=== PATIENT | female | born 1930 | race Caucasian/White ===

== ENCOUNTER 2017-10-28 17:28 | Inpatient (IN) | payer OTHER, MEDICARE ==
--- NOTE | 2017-10-28 18:05 | PDOC ---
History of Present Illness - General Chief Complaint: Chest Pain Stated Complaint: PAIN Time Seen by Provider: 10/28/17 17:53 - History of Present Illness Initial Comments: 10/28/17 18:04 86 yo F with h/o F with h/o of HTN, HLD, hypothyroidism, dementia, and recent R 6th-9th rib fracture ( 10/26/17) who p/w chest pain. Family at bedside to assist in report. Patient reports worsening R sided sharp, pleuritic chest pain , and non productive cough x 2 days. Fevers x 1 day. Recent fall and R sided 6th-9th rib fracture (10/26) requiring hospitalization. Following d/c from hospital patient has been bed bound, and ambulation with walker to bathroom. Patient lives with sister in basement. Reports non compliance with incentive spirometry, and absent physical therapy. Pain controlled with tylenol, and lidocaine patch. Patient sister also reports increased urinary dribbling from baseline. Patient denies PND, palpitations, orthopnea, leg swelling/pain, SOB, abdominal pain, diarrhea, constipation, lightheadedness, weakness, sensory changes. PMHx: as noted above ROS: as noted SHx: Denies Etoh, IVDA, tobacco use Allergies: NKDA Past History - Past Medical History Allergies/Adverse Reactions: Allergies Allergy/AdvReac Type Severity Reaction Status Date / Time ANTELMO Inhibitors AdvReac Mild Cough Verified 10/28/17 17:55 Home Medications: Ambulatory Orders Aspirin 81 mg PO ASDIR 10/25/17 Citalopram Hydrobromide [Citalopram HBr] 10 mg PO ASDIR 10/25/17 Diclofenac Sodium 50 mg PO ASDIR 10/25/17 Ezetimibe/Simvastatin [Vytorin 10-40 mg Tablet] 1 each PO ASDIR 10/25/17 Hydrochlorothiazide 12.5 mg PO ASDIR 10/25/17 Levothyroxine [Synthroid -] 112 mcg PO DAILY 10/25/17 Metoprolol Tartrate 25 mg PO ASDIR 10/25/17 Olmesartan Medoxomil [Benicar -] 20 mg PO DAILY 10/25/17 Acetaminophen [Tylenol .Regular Strength -] 650 mg PO Q6H PRN tablet 10/26/17 COPD: No Dementia: Yes HTN: Yes Hypercholesterolemia: Yes Psychiatric Problems: Yes (Anxiety) Thyroid Disease: Yes (hypothyroid) - Suicide/Smoking/Psychosocial Hx Smoking History: Never smoked Have you smoked in the past 12 months: No Hx Alcohol Use: No Drug/Substance Use Hx: No Substance Use Type: None Review of Systems - Review of Systems Comments:: 10/28/17 18:04 GENERAL/CONSTITUTIONAL: No fever or chills. No weakness. HEAD, EYES, EARS, NOSE AND THROAT: No change in vision. No ear pain or discharge. No sore throat. CARDIOVASCULAR: + chest pain. No shortness of breath RESPIRATORY: + chest pain and cough. No wheezing, or hemoptysis. GASTROINTESTINAL: No nausea, vomiting, diarrhea or constipation. GENITOURINARY: + change in urination. No dysuria, frequency. MUSCULOSKELETAL: No joint or muscle swelling or pain. No neck or back pain. SKIN: No rash NEUROLOGIC: No headache, vertigo, loss of consciousness, or change in strength/ sensation. ENDOCRINE: No increased thirst. No abnormal weight change HEMATOLOGIC/LYMPHATIC: No anemia, easy bleeding, or history of blood clots. ALLERGIC/IMMUNOLOGIC: No hives or skin allergy. *Physical Exam - Vital Signs Last Vital Signs Temp Pulse Resp BP Pulse Ox 102.0 F H 68 16 140/70 98 10/28/17 17:56 10/28/17 17:56 10/28/17 17:56 10/28/17 17:56 10/28/17 17:56 - Physical Exam Comments: 10/28/17 18:04 GENERAL: Awake, alert, and fully oriented, in no acute distress HEAD: No signs of trauma, normocephalic, atraumatic EYES: PERRLA, EOMI, sclera anicteric, conjunctiva clear ENT: Hearing grossly normal, nares patent, oropharynx clear without exudates. Moist mucosa NECK: Normal ROM, supple, no lymphadenopathy, JVD, or masses LUNGS: No distress, speaks full sentences, clear to auscultation bilaterally HEART: Regular rate and rhythm, normal S1 and S2, no murmurs, rubs or gallops, peripheral pulses normal and equal bilaterally. CHEST: + R sided 6th-9th RIB ttp, with ecchymosis and lidocaine patch in place. ABDOMEN: Soft, + Suprpapubic ttp. nontender, normoactive bowel sounds. No guarding, no rebound. No masses. Neg CVA ttp. EXTREMITIES : Normal inspection, Normal range of motion, no edema. No clubbing or cyanosis. SKIN: Warm, Dry, normal turgor, no rashes or lesions noted ED Treatment Course - LABORATORY CBC & Chemistry Diagram: 10/28/17 18:49 10/28/17 18:49 Medical Decision Making - Medical Decision Making 10/28/17 18:30 86 yo F with h/o F with h/o of HTN, HLD, hypothyroidism, dementia, and recent closed R 6th-9th rib fracture ( 10/26/17) who p/w pleuritic chest pain. Temp 102.0, Vitals otherwise wnl. Low risk PE wells criteria. Possible PNA. Recent urinary change, will consider cystitis. Absent CVA ttp, non toxic appearing. Low suspicion pyelonephritis. PMD. Rubio. Ed Course: CBC,CMP, Cardiac Pr. LA, Pt/INR, VBG UA, Urine Cx. Blood Cx. EKG, CXR Oxycodone, Tylenol, NS, 10/28/17 19:11 WBC: 12.2 (10.3 previous admission) 10/28/17 20:28 Patient CXR with possible RML consolidation on preliminary read Herman Lima Patient admitted to Inpt/Ifudu *DC/Admit/Observation/Transfer Diagnosis at time of Disposition: Ribs, multiple fractures, Pneumonia - Discharge Dispostion Condition at time of disposition: Stable Decision to Admit order: Yes - Referrals Referrals: Sarah Bergeron MD [Primary Care Provider] - - Patient Instructions - Post Discharge Activity
[2017-10-28] MEDS ORDERED: SODIUM CHLORIDE 0.9% 1000 ML INFUS.BAG IV STA (18:23)
[2017-10-28] MEDS ORDERED: oxyCODONE HCL 5 MG TABLET PO ONE (18:27)
[2017-10-28] MEDS ORDERED: ACETAMINOPHEN 325 MG TABLET (FP) PO ONE (18:28)
[2017-10-28 18:59] LABS: BASO % 0.1 % (0-2.0); EOS % 0.1 % (0-4.5); HEMATOCRIT 36.5 % (32.4-45.2); HEMOGLOBIN 12.2 GM/dL (10.7-15.3); LYMPH % 2.2 % (8-40); MCH 29.9 pg (25.7-33.7); MCHC 33.4 g/dl (32.0-36.0); MEAN CELL VOLUME 89.4 fl (80-96); MEAN PLT VOLUME 9.9 fl (7.5-11.1); NEUT % 90.6 % (42.8-82.8); PLATELET COUNT 170 K/MM3 (134-434); RBC 4.08 M/mm3 (3.60-5.2); RDW 13.6 % (11.6-15.6); WHITE BLOOD COUNT 12.2 K/mm3 (4.0-10.0)
[2017-10-28 19:01] LABS: VENOUS PH 7.4 (7.32-7.42); VENOUS PO2 30.2 mmHg (28-48)
--- NOTE | 2017-10-28 19:07 | PDOC ---
Attending Attestation - Resident Resident Name: Moe Correia - ED Attending Attestation I have performed the following: I have examined & evaluated the patient, The case was reviewed & discussed with the resident, I agree w/resident's findings & plan, Exceptions are as noted - HPI HPI: 10/28/17 19:05 86-year-old female returns to the hospital with her family because of fever. She was discharged October 26 after a two-day hospitalization for multiple rib fractures and pain control -Patient has dementia. Patient states she is noncompliant with her incentive spirometer, is difficult to get her to comply. Patient has a 102 fever and cough and complaint of increased urination - Physicial Exam PE: 10/28/17 19:10 Head normocephalic/atraumatic. Neck no bruits. Torso, right anterior chest wall pain. Chest scattered rhonchi CVS regular rate and rhythm S1, S2 Protuberant but soft abdomen. Legs no deformities. No tenderness Skin warm and dry. Neuro patient is alert, but a very poor historian - Medical Decision Making 10/28/17 21:35 86 yo female recently d/c after having fractured ribs 6-9 p/w fever and cough 10/28/17 21:40 cxr probable PML infiltrate, [id number] started and pt admitted
[2017-10-28] MEDS ORDERED: ACETAMINOPHEN 325 MG TABLET (FP) ONE (19:14)
[2017-10-28] MEDS ORDERED: oxyCODONE HCL 5 MG TABLET ONE (19:15)
[2017-10-28] MEDS ORDERED: VANCOMYCIN 1,500 MG in DEXTROSE 5%-WATER - 250 ML IVPB ONE (19:16)
[2017-10-28] MEDS ORDERED: PIPERACILLIN/TAZOB 4.5 GM 4.5 GM in DEXTROSE 5%-WATER 100 ML IVPB ONE (19:16)
[2017-10-28 19:18] LABS: INR 1.05 (0.82-1.09); PROTHROMBIN TIME (PATIENT) 11.9 SEC (9.7-13.0)
[2017-10-28 19:21] LABS: ACTIVATED PTT 22.1 SECONDS (25.2-36.5)
[2017-10-28 19:27] LABS: ALBUMIN 3.7 g/dl (3.4-5.0); ANION GAP 9 (8-16); BLOOD UREA NITROGEN 21 mg/dL (7-18); CALCIUM 9.5 mg/dL (8.5-10.1); CHLORIDE 103 mmol/L (98-107); CO2 28 mmol/L (21-32); CREATININE 1.2 mg/dL (0.55-1.02); GLUCOSE,RANDOM 96 mg/dL (74-106); POTASSIUM 3.9 mmol/L (3.5-5.1); SGOT/AST 24 U/L (15-37); SGPT/ALT 31 U/L (12-78); SODIUM 140 mmol/L (136-145)
[2017-10-28 19:29] LABS: ALK PHOS 83 U/L (45-117); BILIRUBIN,TOTAL 0.8 mg/dL (0.2-1.0)
[2017-10-28] MEDS ORDERED: VANCOMYCIN 1,500 MG in DEXTROSE 5%-WATER - 500 ML IVPB ONE (19:32)
[2017-10-28] MEDS ORDERED: PIPERACILLIN/TAZOB 4.5 GM 4.5 GM/100 ML BAG IVPB ONE (19:57)
--- NOTE | 2017-10-28 20:29 | PN ---
Teaching Attending Note Name of Resident: Jayson Matthew ATTENDING PHYSICIAN STATEMENT I saw and evaluated the patient. I reviewed the resident's note and discussed the case with the resident. I agree with the resident's findings and plan as documented. SUBJECTIVE: Patient is an 86 year old woman with history of HTN, HLD, hypothyroidism, dementia, and recent right 6th, 7th and 9th rib and right 5th metatarsal fractures after a fall (discharged on 10/26/17) who presents with chest pain. Family at bedside to assist in report. Patient reports worsening R sided sharp, pleuritic chest pain, and non productive cough x 2 days and fevers x 1 day. Since discharge from hospital patient has been bed bound, and ambulation with walker to bathroom. Patient lives with sister in basement. Reports non compliance with incentive spirometry, and absent physical therapy. Pain controlled with tylenol, and lidocaine patch. Patient sister also reports increased urinary dribbling from baseline. OBJECTIVE: Alert and in no acute distress Vital Signs Period Temp Pulse Resp BP Sys/Hobbs Pulse Ox Last 24 Hr 102.0 F 68 16 140/70 98 HEENT: No Jaundice, eye redness or discharge, PERRLA, EOMI. Normocephalic, atraumatic. External ears are normal and hearing is grossly intact. No nasal discharge. Neck: Supple, nontender. No palpable adenopathy or thyromegaly. No JVD Chest: Decreased breath sounds. Right chest wall tenderness. Heart: Regular. No S3, rub or murmur Abdomen: Not distended, soft, nontender and no HSM. No rebound or guarding. Normoactive bowel sounds. Ext: Peripheral pulses intact. No leg edema. Tender right 5th metatarsal. Skin: Warm and dry. No petechiae, rash or ecchymosis. Neuro: Alert. Oriented to person and place. Intermittently confused. CN 2-12 grossly intact. Sensation grossly intact in all four extremities and DTR are symmetric. Home Medications Medication Instructions Recorded Aspirin 81 mg PO ASDIR 10/25/17 Citalopram Hydrobromide 10 mg PO ASDIR 10/25/17 [Citalopram HBr] Diclofenac Sodium 50 mg PO ASDIR 10/25/17 Ezetimibe/Simvastatin [Vytorin 1 each PO ASDIR 10/25/17 10-40 mg Tablet] Hydrochlorothiazide 12.5 mg PO ASDIR 10/25/17 Levothyroxine [Synthroid -] 112 mcg PO DAILY 10/25/17 Metoprolol Tartrate 25 mg PO ASDIR 10/25/17 Olmesartan Medoxomil [Benicar -] 20 mg PO DAILY 10/25/17 Acetaminophen [Tylenol .Regular 650 mg PO Q6H PRN tablet 10/26/17 Strength -] Abnormal Lab Results 10/28/17 10/28/17 10/28/17 18:49 18:49 18:49 WBC 12.2 H Neutrophils % 90.6 H Lymphocytes % 2.2 L D PTT (Actin FS) 22.1 L Mixed VBG HCO3 28.2 H BUN Creatinine 10/28/17 18:49 WBC Neutrophils % Lymphocytes % PTT (Actin FS) Mixed VBG HCO3 BUN 21 H Creatinine 1.2 H ASSESSMENT AND PLAN: 1. Healthcare-associated Pneumonia - CXR shows right middle lobe infiltrate. Has gotten Zosyn and Vancomycin in the ER. Has INOCENCIA, so will adjust Zosyn dose to 3.375 gm q 8 hours and use Zyvox 600 mg IV q 12 hours. Will hold Celexa to avoid Serotonin Release Syndrome that may result with interaction with Zyvox. Will give prednisone 40 mg po qd. Continue lidoderm patch for pain associated with right rib fractures and encourage incentive spirometry. Consult thoracic surgery to consider the option of intercostal nerve block to relieve rib fracture pain. Implement fall precautions in view of recent mechanical fall. 2. INOCENCIA - Dehydration due to pain-induced poor food and fluid intake is likely cause. Give IN NS at 50 ml/hour. Will encourage liberal oral fluid intake and avoid nephrotoxic agents such as NSAIDS, aminoglycosides, contrast dyes and certain alternative medicine products. 3. DVT prophylaxis - Heparin 5000u sq tid. 4. Advance directives - Full code
[2017-10-28 21:41] LABS: URINE APPEARANCE CLEAR; URINE BILIRUBIN NEGATIVE (<2.0 mg/dL); URINE COLOR YELLOW; URINE GLUCOSE (UA) NEGATIVE (NEGATIVE); URINE KETONE TRACE (NEGATIVE); URINE LEUK ESTERASE NEGATIVE (NEGATIVE); URINE NITRITE NEGATIVE (NEGATIVE); URINE PROTEIN NEGATIVE (NEGATIVE); URINE UROBILINOGEN NEGATIVE mg/dL (0.2-1.0)
[2017-10-28] MEDS ORDERED: ACETAMINOPHEN 325 MG TABLET (FP) PO PRN (22:56)
[2017-10-28] MEDS ORDERED: SODIUM CHLORIDE 1,000 ML IV SCH (23:30)
--- NOTE | 2017-10-28 23:30 | HP ---
CHIEF COMPLAINT: PCP: HISTORY OF PRESENT ILLNESS: 86 yo F w/ PMH HTN, HLD, hypothyroidism, dementia, and recent R 6th-9th rib fracture ( admission 10/26/17 s/p mechanical fall) who p/w chest pain. Family at bedside to assist in report. Patient reports worsening R sided sharp, pleuritic chest pain, shallow breathing due to pain, and non productive cough, and 102F Fevers x 1 day. Recent fall and R sided 6th-9th rib fracture (10/26) requiring hospitalization. Following d/c from hospital patient has been has been ambulating w/ the help of her grandson who makes sure she walks around as per hospital DC instructions At baseline, she ambulates with walker to bathroom. Patient lives with sister in basement. Reports non compliance with incentive spirometry, and absent physical therapy. Pain controlled with tylenol , and lidocaine patch. Patient sister also reports that pt had one episode of where she urinated herself but unclear whether this was incontinence. Pt purposely does not drink a lot of water because she tries to limit how often she has to go to bathroom in order to avoid ambulation Patient denies n/v/d, abd pain, hematuria, dysuria, HUGHES, SOB. ER course was notable for: (1)Zosyn and Vanc (2) (3) Recent Travel: PAST MEDICAL HISTORY: recent echo from last admission was wnl PAST SURGICAL HISTORY: Social History: Smokinnd hand smoke from son Alcohol: denies Drugs: denies Family History: sister Alzheimer Allergies ANTELMO Inhibitors Adverse Reaction (Mild, Verified 10/28/17 17:55) Cough HOME MEDICATIONS: Home Medications Medication Instructions Recorded Aspirin 81 mg PO ASDIR 10/25/17 Citalopram Hydrobromide 10 mg PO ASDIR 10/25/17 [Citalopram HBr] Diclofenac Sodium 50 mg PO ASDIR 10/25/17 Ezetimibe/Simvastatin [Vytorin 1 each PO ASDIR 10/25/17 10-40 mg Tablet] Hydrochlorothiazide 12.5 mg PO ASDIR 10/25/17 Levothyroxine [Synthroid -] 112 mcg PO DAILY 10/25/17 Metoprolol Tartrate 25 mg PO ASDIR 10/25/17 Olmesartan Medoxomil [Benicar -] 20 mg PO DAILY 10/25/17 Acetaminophen [Tylenol .Regular 650 mg PO Q6H PRN tablet 10/26/17 Strength -] REVIEW OF SYSTEMS Reviewed in HPI PHYSICAL EXAMINATION Vital Signs - 24 hr 10/28/17 10/28/17 10/28/17 17:56 21:58 22:21 Temperature 102.0 F H 100.2 F H 98.8 F Pulse Rate 68 Pulse Rate [ 89 Right] Respiratory 16 16 Rate Blood Pressure 140/70 Blood Pressure 115/74 [Right Arm] O2 Sat by Pulse 98 98 Oximetry (%) GENERAL: Awake, alert, in no acute distress. Ox2 does not know the date HEAD: Normal with no signs of trauma. EYES: PERRLA, extraocular movements intact, sclera anicteric, conjunctiva clear. No lid lag. EARS, NOSE, THROAT: Ears normal, nares patent, oropharynx clear without exudates. Moist mucous membranes. NECK: Normal range of motion, supple without lymphadenopathy, JVD, or masses. LUNGS: R sided crackles > L side. Decreased breath sounds. Right chest wall tenderness. No wheezes, No accessory muscle use. HEART: RRR, normal S1 and S2 without murmur, rub or gallop. ABDOMEN: Soft, NTND, +BS, no guarding, no rebound, no masses. No hepatomegaly or splenomegaly. MUSCULOSKELETAL: Normal range of motion at all joints. No bony deformities or tenderness. No CVA tenderness. UPPER EXTREMITIES: 2+ pulses, warm, well-perfused. No cyanosis. No clubbing. No peripheral edema. LOWER EXTREMITIES: 2+ pulses, warm, well-perfused. No calf tenderness. No peripheral edema. R ankle has mild swelling NEUROLOGICAL: Cranial nerves II-XII intact. Normal speech. SKIN: Warm, dry, normal turgor, no rashes or lesions noted, normal capillary refill. Laboratory Results - last 24 hr 10/28/17 10/28/17 10/28/17 18:49 18:49 18:49 WBC 12.2 H RBC 4.08 Hgb 12.2 Hct 36.5 MCV 89.4 MCH 29.9 MCHC 33.4 RDW 13.6 Plt Count 170 MPV 9.9 Absolute Neuts (auto) 11.1 Neutrophils % 90.6 H Lymphocytes % 2.2 L D Monocytes % 7.0 Eosinophils % 0.1 D Basophils % 0.1 Nucleated RBC % 0 PT with INR 11.90 INR 1.05 PTT (Actin FS) 22.1 L VBG pH 7.40 POC VBG pCO2 43.0 POC VBG pO2 30.2 Mixed VBG HCO3 28.2 H Sodium Potassium Chloride Carbon Dioxide Anion Gap BUN Creatinine Creat Clearance w eGFR Random Glucose Lactic Acid Calcium Total Bilirubin AST ALT Alkaline Phosphatase Total Protein Albumin Urine Color Urine Appearance Urine pH Ur Specific [place] Urine Protein Urine Glucose (UA) Urine Ketones Urine Blood Urine Nitrite Urine Bilirubin Urine Urobilinogen Ur Leukocyte Esterase 10/28/17 10/28/17 10/28/17 18:49 18:49 20:50 WBC RBC Hgb Hct MCV MCH MCHC RDW Plt Count MPV Absolute Neuts (auto) Neutrophils % Lymphocytes % Monocytes % Eosinophils % Basophils % Nucleated RBC % PT with INR INR PTT (Actin FS) VBG pH POC VBG pCO2 POC VBG pO2 Mixed VBG HCO3 Sodium 140 Potassium 3.9 Chloride 103 Carbon Dioxide 28 Anion Gap 9 BUN 21 H Creatinine 1.2 H Creat Clearance w eGFR 42.80 Random Glucose 96 Lactic Acid 1.1 Calcium 9.5 Total Bilirubin 0.8 AST 24 ALT 31 Alkaline Phosphatase 83 D Total Protein 7.0 Albumin 3.7 Urine Color Yellow Urine Appearance Clear Urine pH 5.0 Ur Specific [place] 1.023 Urine Protein Negative Urine Glucose (UA) Negative Urine Ketones Trace H Urine Blood Negative Urine Nitrite Negative Urine Bilirubin Negative Urine Urobilinogen Negative Ur Leukocyte Esterase Negative CT chest - show mod R pleural effusion and patchy consolidation in RLL, possible PNA ASSESSMENT/PLAN: 86 yo F w/ PMH HTN, HLD, hypothyroidism, dementia, and recent R 6th-9th rib fracture ( admission 10/26/17 s/p mechanical fall) who p/w pleuritic chest pain , nonproductive cough, and fever x1d in the setting of recent hospital visit and incentive spirometer not compliance. Healthcare-associated Pneumonia - CXR shows RML infiltrate. CT chest - show mod R pleural effusion and patchy consolidation in RLL, possible PNA. Has gotten Zosyn and Vancomycin in the ER. -c/w Zosyn dose to 3.375 gm q 8 hours and use Zyvox 600 mg IV q 12 hours in setting of INOCENCIA. -hold Celexa to avoid Serotonin Release Syndrome that may result with interaction with Zyvox. -prednisone 40 mg po qd. -Tylenol and lidoderm patch for pain ctl for right rib fractures -encourage incentive spirometry. -Consult thoracic surgery to consider the option of intercostal nerve block to relieve rib fracture pain. -Fall precautions in view of recent mechanical fall. INOCENCIA - Dehydration due to pain-induced poor food and fluid intake is likely cause. -IV NS at 50 ml/hour. -encourage liberal oral fluid intake and avoid nephrotoxic agents Constipation -Colace HCM -c/w home dose meds -hold Celexa to avoid Serotonin Release Syndrome that may result with interaction with Zyvox. #FEN -IV NS 50cc/hr -replete lytes as needed -low sodium diet #DVTppx SQH 5000U tid #Dispo -admit to meds surg -Full code Visit type - Emergency Visit Emergency Visit: Yes ED Registration Date: 10/28/17 Care time: The patient presented to the Emergency Department on the above date and was hospitalized for further evaluation of their emergent condition. - New Patient This patient is new to me today: Yes Date on this admission: 10/29/17 - Critical Care Critical Care patient: No Hospitalist Screening - Colonoscopy Questionnaire Colonoscopy Questionnaire: Colonoscopy Questionnaire - Patient: 50 - 75 years old and never had a screening colonoscopy: Unknown History of colon or rectal polyps, or CA: Unknown History of IBD, Crohn's disease or UC: Unknown History of abdominal radiation therapy as a child: Unknown - Relative: 1 with colon or rectal CA, or polyps at age 60 or younger: Unknown Colon or rectal CA diagnosed at age 45 or younger: Unknown Multiple relatives with colon or rectal CA: Unknown - Outcome: Screening Result: Negative Screen
[2017-10-29] MEDS ORDERED: METOPROLOL TARTRATE 25 MG TABLET (FP) PO SCH ×2 (00:30→10:00)
[2017-10-29] MEDS ORDERED: PATIENT'S OWN MEDICATION (NON-FORMULARY) (Hydrochlorothiazide [Hydrochlorothiazide] 12.5 M PO SCH (00:30)
[2017-10-29] MEDS ORDERED: DICLOFENAC SODIUM 50 MG PO SCH (00:30)
[2017-10-29] MEDS ORDERED: ASPIRIN 81 MG CHEWABLE TABLETS PO SCH (00:30)
[2017-10-29] MEDS ORDERED: CITALOPRAM HYDROBROMIDE 10 MG TABLET (FP) PO SCH (00:30)
[2017-10-29] MEDS ORDERED: VANCOMYCIN 1,000 MG in DEXTROSE 5%-WATER - 250 ML IVPB SCH ×3 (00:45→23:00)
[2017-10-29] MEDS ORDERED: LINEZOLID 600 MG PREMIX BAG 600 MG/300 ML BAG IVPB ONE (02:00)
[2017-10-29] MEDS ORDERED: PIPERACILLIN/TAZOB 2.25 GM 2.25 GM in DEXTROSE 5%-WATER - 50 ML IVPB SCH (02:00)
[2017-10-29] MEDS ORDERED: LINEZOLID 600 MG PREMIX BAG 600 MG in PREMIX 300 IVPB SCH (02:00)
[2017-10-29] MEDS ORDERED: VANCOMYCIN 1 GM PREMIX - 1 GM/200 ML BAG IVPB ONE (02:00)
[2017-10-29] MEDS ORDERED: PIPERACILLIN/TAZOB 3.375 GM 3.375 GM in DEXTROSE 5%-WATER - 50 ML IVPB SCH (02:00)
[2017-10-29] MEDS: DOCUSATE SODIUM 100 MG CAPSULE (FP) PO SCH ×4 (02:05→21:21)
[2017-10-29] MEDS: HEPARIN NA (PORCINE) 5,000 UNITS/ML 1ML VIAL SQ SCH ×4 (02:05→21:22)
[2017-10-29] MEDS ORDERED: DEXTROSE 5%-WATER - 50 ML IVPB ONE ×2 (03:50→10:56)
[2017-10-29] MEDS ORDERED: PIPERACILLIN/TAZOBACTAM 3.375 GM VIAL IVPB ONE ×2 (03:50→10:56)
[2017-10-29] MEDS: PIPERACILLIN/TAZOB 3.375 GM 3.375 GM in DEXTROSE 5%-WATER - 50 ML IVPB SCH ×2 (04:10→11:28)
[2017-10-29 04:32] VITALS: BMI 29.0
[2017-10-29 07:55] LABS: BASO % 0.1 % (0-2.0); HEMATOCRIT 32.1 % (32.4-45.2); MCH 30.2 pg (25.7-33.7); MCHC 34.2 g/dl (32.0-36.0); MEAN CELL VOLUME 88.4 fl (80-96); MEAN PLT VOLUME 9.3 fl (7.5-11.1); MONO % 6.6 % (3.8-10.2); NEUT % 91.3 % (42.8-82.8); PLATELET COUNT 152 K/MM3 (134-434); RBC 3.63 M/mm3 (3.60-5.2); RDW 13.7 % (11.6-15.6); WHITE BLOOD COUNT 11.9 K/mm3 (4.0-10.0)
[2017-10-29] MEDS: LEVOTHYROXINE NA 112 MCG TABLET (FP) PO SCH (08:25)
[2017-10-29 08:40] LABS: INR 1.04 (0.82-1.09); PROTHROMBIN TIME (PATIENT) 11.8 SEC (9.7-13.0)
[2017-10-29 08:43] LABS: ACTIVATED PTT 25.5 SECONDS (25.2-36.5)
[2017-10-29] MEDS ORDERED: ACETAMINOPHEN 325 MG TABLET (FP) PO PRN (08:43)
[2017-10-29] MEDS ORDERED: oxyCODONE HCL 5 MG TABLET PO PRN (08:44)
[2017-10-29 08:48] LABS: CHLORIDE 102 mmol/L (98-107); POTASSIUM 3.4 mmol/L (3.5-5.1); SODIUM 138 mmol/L (136-145)
[2017-10-29 09:04] LABS: ALBUMIN 3.1 g/dl (3.4-5.0); ALK PHOS 70 U/L (45-117); ANION GAP 9 (8-16); BILIRUBIN,TOTAL 0.7 mg/dL (0.2-1.0); BLOOD UREA NITROGEN 19 mg/dL (7-18); CALCIUM 8.3 mg/dL (8.5-10.1); CO2 27 mmol/L (21-32); CREATININE 1.2 mg/dL (0.55-1.02); GLUCOSE,RANDOM 109 mg/dL (74-106); MAGNESIUM 1.7 mg/dL (1.8-2.4); PHOSPHOROUS 3.6 mg/dL (2.5-4.9); SGOT/AST 21 U/L (15-37); SGPT/ALT 26 U/L (12-78); TOT PROT 5.9 g/dl (6.4-8.2)
[2017-10-29] MEDS ORDERED: MAGNESIUM SULF 50% (8.12 MEQ/2 ML-1 GM VIAL) IVPB ONE (09:06)
[2017-10-29] MEDS: POTASSIUM CHLORIDE 10 MEQ in SODIUM CHLORIDE 100 ML IVPB SCH ×2 (09:29→15:31)
[2017-10-29] MEDS ORDERED: POTASSIUM CHLORIDE TABS 20 MEQ TABLET.ER (FP) PO ONE (09:45)
[2017-10-29] MEDS ORDERED: MAGNESIUM SULFATE IN WATER 2 GM/50 ML IVPB IVPB ONE (10:00)
[2017-10-29] MEDS ORDERED: HYDROCHLOROTHIAZIDE 12.5 MG CAPSULE (FP) PO SCH (10:00)
[2017-10-29] MEDS ORDERED: LINEZOLID 600 MG PREMIX BAG 600 MG/300 ML BAG IVPB SCH ×2 (10:00→22:00)
[2017-10-29] MEDS ORDERED: predniSONE 20 MG TABLET (UD) PO SCH (10:00)
[2017-10-29] MEDS: LIDOCAINE 5% TOPICAL PATCH TP SCH (10:04)
--- NOTE | 2017-10-29 10:25 | PN ---
Progress Note (short form) - Note Progress Note: ID consult dictated imp/reccd 86 year old female s/p recent fall and right rib fracture 6-9, 10/26/17 now admitted with fever unable to cough reports right rib pain no other complains history of dementia received zosyn 4.5 g vancomycin 1.5 g in ED chest ct not read yet but c/u RLL process-infiltrate vs atelectasis RLL pneumonia s/p recent rib fracture f/u cultures, legionella urinary antigen continue zosyn check vanco level in am unable to cough due to pain- will send nares screen for MRSA Problem List - Problems (1) Pneumonia Code(s): J18.9 - PNEUMONIA, UNSPECIFIED ORGANISM (2) Ribs, multiple fractures Code(s): S22.49XA - MULTIPLE FRACTURES OF RIBS, UNSP SIDE, INIT FOR CLOS FX (3) Dementia Code(s): F03.90 - UNSPECIFIED DEMENTIA WITHOUT BEHAVIORAL DISTURBANCE
[2017-10-29] MEDS ORDERED: PT OWN MED DRAWER 7, Y5N ONE ×2 (10:56→18:39)
[2017-10-29] MEDS ORDERED: DEXTROSE 5%-WATER 100 ML IVPB ONE ×2 (10:56→17:13)
[2017-10-29] MEDS ORDERED: PIPERACILLIN/TAZOBACTAM 4.5 GM VIAL IVPB ONE ×2 (10:56→17:13)
[2017-10-29] MEDS: METOPROLOL TARTRATE 25 MG TABLET (FP) PO SCH ×2 (11:00→21:21)
[2017-10-29] MEDS: ASPIRIN 81 MG CHEWABLE TABLETS PO SCH (11:00)
[2017-10-29] MEDS: VALSARTAN 160 MG TABLET (UD) PO SCH (11:00)
[2017-10-29] MEDS: DICLOFENAC SODIUM 25 MG TABLET.DR PO SCH (11:02)
[2017-10-29] MEDS: PIPERACILLIN/TAZOB 4.5 GM 4.5 GM in DEXTROSE 5%-WATER 100 ML IVPB SCH ×2 (11:04→17:48)
[2017-10-29 11:22] LABS: ACANTHOCYTES 0; ANISOCYTOSIS 0; HELMET CELLS 0; HOWELL-JOLLY BODIES 0; MACROCYTOSIS 0; OVALOCYTE 0; PLATELET ESTIMATE DECREASED; ROULEAU 0; SICKELED CELLS 0; TARGET CELLS 0; TEAR DROP CELLS 0; TOXIC GRANULATION 0
--- NOTE | 2017-10-29 11:32 | EKG ---
Test Reason : Blood Pressure : / mmHG Vent. Rate : 061 BPM Atrial Rate : 061 BPM P-R Int : 144 ms QRS Dur : 088 ms QT Int : 468 ms P-R-T Axes : 070 021 049 degrees QTc Int : 471 ms NORMAL SINUS RHYTHM LOW VOLTAGE QRS BORDERLINE ECG WHEN COMPARED WITH ECG OF 25-OCT-2017 22:49, NO SIGNIFICANT CHANGE WAS FOUND Confirmed by CHELA ALCOCER MD ([id number]) on 10/29/2017 11:31:47 AM Referred By: Confirmed By:CHELA ALCOCER MD
--- NOTE | 2017-10-29 12:03 | PN ---
Progress Note, Physician Chief Complaint: Pt lying in bed in no acute distress. Reports right sided chest pain from rib fx. using IS with assistance. Otherwise, denies any chest discomfort, sob, n/v/ d. - Current Medication List Current Medications: Active Medications Acetaminophen (Tylenol -) 650 mg PO Q6H PRN PRN Reason: FEVER Last Admin: 10/29/17 09:09 Dose: 650 mg Aspirin (Asa -) 81 mg PO DAILY [facility] Last Admin: 10/29/17 11:00 Dose: 81 mg Atorvastatin Calcium (Lipitor -) 20 mg PO [facility] Diclofenac Sodium (Voltaren -) 50 mg PO DAILY [facility] Last Admin: 10/29/17 11:02 Dose: 50 mg Docusate Sodium (Colace -) 100 mg PO TID [facility] Last Admin: 10/29/17 08:25 Dose: 100 mg Ezetimibe (Zetia -) 10 mg PO [facility] Heparin Sodium (Porcine) (Heparin -) 5,000 unit SQ TID [facility] Last Admin: 10/29/17 08:25 Dose: 5,000 unit Sodium Chloride (Normal Saline -) 1,000 mls @ 50 mls/hr IV ASDIR [facility] Stop: 10/29/17 23:29 Last Admin: 10/29/17 02:20 Dose: 50 mls/hr Piperacillin Sod/Tazobactam (Sod 4.5 gm/ Dextrose) 100 mls @ 200 mls/hr IVPB Q8H-IV [facility]; Protocol Last Admin: 10/29/17 11:04 Dose: 200 mls/hr Levothyroxine Sodium (Synthroid -) 112 mcg PO AM [facility] Last Admin: 10/29/17 08:25 Dose: 112 mcg Lidocaine (Lidoderm Patch -) 1 patch TP DAILY [facility] Metoprolol Tartrate (Lopressor -) 25 mg PO BID [facility] Last Admin: 10/29/17 11:00 Dose: 25 mg Miscellaneous (Lidoderm Patch Removal) 1 each MC DAILY@2200 [facility] Oxycodone HCl (Roxicodone -) 2.5 mg PO Q6H PRN PRN Reason: PAIN LEVEL 6-10 Prednisone (Deltasone -) 40 mg PO DAILY [facility] Last Admin: 10/29/17 11:00 Dose: 40 mg Valsartan (Diovan -) 160 mg PO DAILY [facility] Last Admin: 10/29/17 11:00 Dose: 160 mg - Objective Vital Signs: Vital Signs Temperature 99.5 F 10/29/17 10:00 Pulse Rate 65 10/29/17 09:04 Respiratory Rate 18 10/29/17 09:04 Blood Pressure 152/73 10/29/17 09:04 O2 Sat by Pulse Oximetry (%) 94 L 10/29/17 02:00 Constitutional: Yes: Well Nourished, No Distress, Calm Cardiovascular: Yes: WNL, Regular Rate and Rhythm. No: Gallop, Murmur Respiratory: Yes: Regular, CTA Bilaterally, Diminished (RLL), Other (mild tenderness on anterior thorax, right side). No: Accessory Muscle Use, Rales, Rhonchi, SOB, Tachypnea, Wheezes Gastrointestinal: Yes: WNL, Normal Bowel Sounds, Soft. No: Distention, Tenderness Genitourinary: Yes: WNL Edema: No Integumentary: Yes: Bruising (right anterior thorax) Neurological: Yes: Alert, Confusion Psychiatric: Yes: Alert Labs: CBC, BMP 10/29/17 07:10 10/29/17 07:10 INR, PTT INR 1.04 (0.82-1.09) 10/29/17 07:10 Problem List - Problems (1) Pneumonia Assessment/Plan: recent admission within last 72 hours for rib fx febrile, tachycardia, wbc 11 RLL, possible infiltrate or atelectasis awaiting CT read urine legionella ordered MRSA nares pending IS 10x/hr continue zosyn ID following Code(s): J18.9 - PNEUMONIA, UNSPECIFIED ORGANISM Qualifiers: Laterality: right Lung location: lower lobe of lung (2) Leukocytosis Assessment/Plan: improving Code(s): D72.829 - ELEVATED WHITE BLOOD CELL COUNT, UNSPECIFIED (3) INOCENCIA (acute kidney injury) Assessment/Plan: possibly secondary reduced po intake ivf monitor Code(s): N17.9 - ACUTE KIDNEY FAILURE, UNSPECIFIED (4) Ribs, multiple fractures Assessment/Plan: s/p recent fall right ribs 6,7,9 fx evaluated by ortho last admission continue PT assist with IS 10xhr splint using pillow to assist with coughing/deep breathing tylenol prn for pain Code(s): S22.49XA - MULTIPLE FRACTURES OF RIBS, UNSP SIDE, INIT FOR CLOS FX Qualifiers: Encounter type: subsequent encounter Fracture type: closed Laterality: right (5) Metatarsal bone fracture Assessment/Plan: pt able to weight bear and ambulate evaluated by ortho last admission continue PT Code(s): S92.309A - FRACTURE OF UNSP METATARSAL BONE(S), UNSP FOOT, INIT Qualifiers: Encounter type: subsequent encounter Metatarsal bone: fifth Fracture type : closed Fracture alignment: nondisplaced Laterality: right (6) Dementia Assessment/Plan: chronic continue home meds Code(s): F03.90 - UNSPECIFIED DEMENTIA WITHOUT BEHAVIORAL DISTURBANCE (7) HTN (hypertension) Assessment/Plan: controlled continue metoprolol, valsartan hold hct in the setting of inocencia Code(s): I10 - ESSENTIAL (PRIMARY) HYPERTENSION Qualifiers: Hypertension type: essential hypertension Qualified Code(s): I10 - Essential (primary) hypertension (8) History of unsteady gait Code(s): Z87.898 - PERSONAL HISTORY OF OTHER SPECIFIED CONDITIONS (9) Hypercholesteremia Assessment/Plan: chronic continue statin Code(s): E78.00 - PURE HYPERCHOLESTEROLEMIA, UNSPECIFIED (10) Hypothyroidism Assessment/Plan: stable continue levothyroxine Code(s): E03.9 - HYPOTHYROIDISM, UNSPECIFIED (11) Venous insufficiency of left leg Assessment/Plan: stable resume hctz when cr baseline Code(s): I87.2 - VENOUS INSUFFICIENCY (CHRONIC) (PERIPHERAL) (12) Hypokalemia Assessment/Plan: k3.4 kcl iv 20eqx1 kcl po [id number] monitor bmp Code(s): E87.6 - HYPOKALEMIA (13) Hypomagnesemia Assessment/Plan: Mg1.7 Mg iv 2g x 1 monitor Code(s): E83.42 - HYPOMAGNESEMIA Assessment/Plan Dispo: possible SNF upon d/c. POC discussed with daughter at bedside. SW informed
--- NOTE | 2017-10-29 14:15 | CONS ---
DATE OF CONSULTATION: DATE OF DICTATION: 10/29/2017 HISTORY: This is an 86-year-old female. She is a patient of . She was admitted on the 25 of October after she sustained a fall at home. She was found to have a right rib fracture of the 6th, 7th, 8th, and 9th ribs. She was admitted and had a workup that was notable only for this. She was discharged on the . She is now readmitted with fever. The patient, otherwise, has no complaints other than right-sided pain. She is not even aware that she had a fall several days ago and had a rib fracture. PAST MEDICAL HISTORY: Notable for hypertension, hyperlipidemia, hypothyroidism, dementia. PAST SURGICAL HISTORY: Not known. ALLERGIES: She apparently has cough to [employer]EL[employer] INHIBITORS. MEDICATIONS: She takes aspirin, Celexa, diclofenac, Vytorin, hydrochlorothiazide, levothyroxine, metoprolol, and Benicar. SOCIAL HISTORY: She lives with her sister. She has several children who she states live in [place]. There is no history of alcohol or substance abuse. REVIEW OF SYSTEMS: She denies headache. She denies abdominal pain. She notes she has this right-sided chest pain. She denies any urinary symptoms or vomiting. PHYSICAL EXAMINATION: Vital Signs: She has a fever of 102 in the emergency room, currently 101.9, pulse 65, blood pressure 152/73, respiratory rate 18. She is saturating 93% on 2 L. General: She looks quite comfortable. HEENT: She is normocephalic. Her eyes are anicteric. Neck: Supple. She has no thrush. Lungs: Crackles at the right base. Heart: Regular rate and rhythm. Abdomen: Soft and nontender. Extremities: Without edema. LABORATORY DATA: White count 11.9, hemoglobin 11, platelets 152. Her BUN 19, creatinine 1.2 with normal LFTs. A urinalysis is negative. Cultures are pending. She had a chest x-ray done that is suggestive of a potential right basilar infiltrate. CAT scan has not been read but is consistent with a right lower lobe process, atelectasis versus infiltrate. Formal reading to be obtained. In summary, this is an 86-year-old woman with a right lower lobe pneumonia, fevers, cough, status post right rib fracture. There is certainly an element of this that is splinting due to pain. She is still quite uncomfortable when she moves in the bed. She is not taking a deep breath due to the pain. Follow up her cultures. I would continue her on the Zosyn. She received 4.5 g in the emergency room, and she received vancomycin 1.5 g, though I would certainly wait before giving her further vancomycin. We will order a level for in the morning. Would suggest analgesia so that her respiratory status improves and she is able to take a better breath. Further recommendations to follow. LILLY PATEL M.D. [id number]
--- NOTE | 2017-10-29 15:25 | CONSULT ---
Consult - text type - Consultation Consultation Note: Full consult dictated Recommend pain control with nsaids, opiods, lidoderm patch pain manangement consult since family does not think pt can use rubberizing mechanic would not recommend intercostal rib block since short acting and risk of pneumothorax small pleural effusion treat pneumonia with antibiotics taught pt and family how to splint right chest with pillow incentive spirometry 10 minutes out of every hour awake and in bed
--- NOTE | 2017-10-29 16:20 | CONS ---
DATE OF CONSULTATION: 10/29/2017 HISTORY: The patient is an 86-year-old female with a history of dementia, whose family found her morning in the bathroom, where she had fallen. According to the patient, she was going to the bathroom and fell, striking her right side. It is unclear whether there was any loss of consciousness. She was complaining of right-sided chest discomfort and was found to have minimally displaced fractures of the right 6th through 8th ribs. She was admitted overnight and then discharged; however, she returned now complaining of fevers for 1 day. According to the family, she has moderate dementia, frequently is confused. She has a hard time following directions. The family says she was not taking deep breaths or using a spirometer at home. Her past medical history is currently not available. She has no smoking history. Her medications include aspirin, simvastatin, hydrochlorothiazide, levothyroxine, metoprolol. She is on neurologic medications. PHYSICAL EXAMINATION: General: She is an elderly female. Vital Signs: T-max was 102.0. She is now afebrile with 98.8. Pulse is 94. Blood pressure is 154/79. Neck: There is no jugular venous distention. Trachea is midline. Musculoskeletal: There is some slight ecchymosis in the right lateral rib area below the tip of the scapula. There is slight tenderness in this area. There is no obvious crepitus or displacement. Heart: S1, S2, without any murmurs or rub. Abdomen: Soft and nontender. CT scan of the chest shows a right lower lobe infiltrate, a small right pleural effusion, minimal displacement of the rib fractures. IMPRESSION: Traumatic rib fractures with subsequent pneumonia. I have instructed the patient and her family on how to splint the right chest wall using a pillow to allow her to take deep breaths. Also explained the importance of incentive spirometry, which should be performed 10 minutes out of every hour that she is awake. I do not feel that rib blocks would be appropriate: One, they are short acting; and two, they do run the risk of pneumothorax, which the patient does not have. I would consider a pain management consult because of the patient's dementia. Normally I would put the patient on WAREHOUSE RECEIVING SUPERVISOR but the family does not think that she would be know enough to press the button as needed. Adequate pain control is critical. The patient does not require steroids but I would consider placing her on a non-steroidal anti-inflammatory medication around the clock, supplemented by opioid pain medication as needed, pending evaluation by Pain Management. She is currently on intravenous antibiotics, and with that, she has become afebrile and her white count has come down. This should resolve with simple supportive care. There is no evidence of an empyema at this time. I would not consider tapping the small pleural effusion at this time. MD SIDRA RODRIGUEZ/[id number]
[2017-10-29] MEDS: ACETAMINOPHEN 325 MG TABLET (FP) PO SCH (17:47)
[2017-10-29] MEDS: DONEPEZIL HCL 5 MG TABLET (FP) PO SCH (21:21)
[2017-10-29] MEDS: ATORVASTATIN CA 20 MG TABLET (FP) PO SCH (21:22)
[2017-10-29] MEDS: EZETIMIBE 10 MG TABLET (FP) PO SCH (21:23)
[2017-10-29] MEDS: LIDOCAINE PATCH REMOVAL MC SCH (21:29)
[2017-10-29] MEDS ORDERED: SIMVASTATIN 40 MG TABLET PO SCH (22:00)
[2017-10-30] MEDS ORDERED: PIPERACILLIN/TAZOBACTAM 4.5 GM VIAL IVPB ONE ×2 (00:44→09:42)
[2017-10-30] MEDS ORDERED: DEXTROSE 5%-WATER 100 ML IVPB ONE ×2 (00:44→09:42)
[2017-10-30] MEDS: ACETAMINOPHEN 325 MG TABLET (FP) PO SCH ×4 (01:00→19:00)
[2017-10-30] MEDS: PIPERACILLIN/TAZOB 4.5 GM 4.5 GM in DEXTROSE 5%-WATER 100 ML IVPB SCH ×2 (01:14→10:10)
[2017-10-30] MEDS: DOCUSATE SODIUM 100 MG CAPSULE (FP) PO SCH ×3 (05:48→21:13)
[2017-10-30] MEDS: HEPARIN NA (PORCINE) 5,000 UNITS/ML 1ML VIAL SQ SCH ×3 (05:48→21:08)
[2017-10-30] MEDS: LEVOTHYROXINE NA 112 MCG TABLET (FP) PO SCH (06:44)
[2017-10-30 07:14] LABS: BASO % 0.1 % (0-2.0); EOS % 0.3 % (0-4.5); HEMATOCRIT 32.7 % (32.4-45.2); HEMOGLOBIN 11.1 GM/dL (10.7-15.3); LYMPH % 2.1 % (8-40); MCH 30.4 pg (25.7-33.7); MCHC 34.1 g/dl (32.0-36.0); MEAN CELL VOLUME 89.1 fl (80-96); MEAN PLT VOLUME 9.7 fl (7.5-11.1); MONO % 6.1 % (3.8-10.2); NEUT % 91.4 % (42.8-82.8); PLATELET COUNT 149 K/MM3 (134-434); RBC 3.66 M/mm3 (3.60-5.2); RDW 13.7 % (11.6-15.6); WHITE BLOOD COUNT 11.1 K/mm3 (4.0-10.0)
[2017-10-30 07:30] LABS: ANION GAP 10 (8-16); BLOOD UREA NITROGEN 23 mg/dL (7-18); CALCIUM 8.2 mg/dL (8.5-10.1); CHLORIDE 108 mmol/L (98-107); CO2 26 mmol/L (21-32); CREATININE 1.3 mg/dL (0.55-1.02); GLUCOSE,RANDOM 104 mg/dL (74-106); SODIUM 144 mmol/L (136-145)
[2017-10-30 07:35] LABS: MAGNESIUM 2.5 mg/dL (1.8-2.4); POTASSIUM 3.8 mmol/L (3.5-5.1)
[2017-10-30 08:55] LABS: PLATELET ESTIMATE ADEQUATE
[2017-10-30] MEDS ORDERED: SODIUM CHLORIDE 1,000 ML IV SCH (09:30)
[2017-10-30] MEDS ORDERED: PT OWN MED DRAWER 7, Y5N ONE ×2 (09:42→20:54)
[2017-10-30] MEDS: VALSARTAN 160 MG TABLET (UD) PO SCH (10:09)
[2017-10-30] MEDS: CITALOPRAM HYDROBROMIDE 10 MG TABLET (FP) PO SCH (10:09)
[2017-10-30] MEDS: METOPROLOL TARTRATE 25 MG TABLET (FP) PO SCH ×2 (10:09→21:08)
[2017-10-30] MEDS: ASPIRIN 81 MG CHEWABLE TABLETS PO SCH (10:09)
--- NOTE | 2017-10-30 10:09 | PN ---
Progress Note (short form) - Note Progress Note: doing well afebrile using incentive spirometer this am right chest pain continues Vital Signs Period Temp Pulse Resp BP Sys/Hobbs Pulse Ox Last 24 Hr 97.7 F-98.2 F 55-66 18-18 118-146/62-74 96 cor-rrr lungs decreased bs at bases abd soft,nt ext no edema CBC, BMP 10/30/17 06:30 10/30/17 06:30 Microbiology 10/29/17 11:38 Nares - Mrsa Screen - Right MRSA Screen - Final NO MRSA ISOLATED 10/29/17 11:38 Nares - Mrsa Screen - Left MRSA Screen - Final NO MRSA ISOLATED 10/28/17 20:50 Urine - Urine Clean Catch Urine Culture - Final NO GROWTH OBTAINED 10/28/17 18:50 Blood - Peripheral Venous Blood Culture - Preliminary NO GROWTH OBTAINED AFTER 24 HOURS, INCUBATION TO CONTINUE FOR 4 DAYS. 10/28/17 18:45 Blood - Peripheral Venous Blood Culture - Preliminary NO GROWTH OBTAINED AFTER 24 HOURS, INCUBATION TO CONTINUE FOR 4 DAYS. 10/29/17 12:20 Urine For Antigen Detection Legionella Antigen - Final 10/29/17 12:20 Urine For Antigen Detection Streptococcus pneumoniae Antigen (M - Final a/p RLL pneumonia s/p recent rib fracture continue zosyn switch to po in am if she remains afebrile Problem List - Problems (1) Pneumonia Code(s): J18.9 - PNEUMONIA, UNSPECIFIED ORGANISM Qualifiers: Laterality: right Lung location: lower lobe of lung (2) Ribs, multiple fractures Code(s): S22.49XA - MULTIPLE FRACTURES OF RIBS, UNSP SIDE, INIT FOR CLOS FX Qualifiers: Encounter type: subsequent encounter Fracture type: closed Laterality: right (3) Dementia Code(s): F03.90 - UNSPECIFIED DEMENTIA WITHOUT BEHAVIORAL DISTURBANCE
[2017-10-30] MEDS: DICLOFENAC SODIUM 25 MG TABLET.DR PO SCH (10:10)
[2017-10-30] MEDS: LIDOCAINE 5% TOPICAL PATCH TP SCH (10:10)
[2017-10-30] MEDS: PIPERACILLIN/TAZOB 3.375 GM 3.375 GM in DEXTROSE 5%-WATER - 50 ML IVPB SCH ×2 (10:52→18:37)
--- NOTE | 2017-10-30 10:57 | PN ---
Progress Note, Physician Chief Complaint: Pt lying in bed in no acute distress. Reports pain is better. using IS with assistance. Otherwise, denies any chest discomfort, sob, n/v/d. - Current Medication List Current Medications: Active Medications Acetaminophen (Tylenol -) 650 mg PO Q6HPO [facility] Last Admin: 10/30/17 05:47 Dose: 650 mg Aspirin (Asa -) 81 mg PO DAILY [facility] Last Admin: 10/30/17 10:09 Dose: 81 mg Atorvastatin Calcium (Lipitor -) 20 mg PO HS [facility] Last Admin: 10/29/17 21:22 Dose: 20 mg Citalopram Hydrobromide (Celexa -) 10 mg PO DAILY [facility] Last Admin: 10/30/17 10:09 Dose: 10 mg Diclofenac Sodium (Voltaren -) 50 mg PO DAILY [facility] Last Admin: 10/30/17 10:10 Dose: 50 mg Docusate Sodium (Colace -) 100 mg PO TID [facility] Last Admin: 10/30/17 05:48 Dose: 100 mg Donepezil HCl (Aricept -) 5 mg PO [facility] Last Admin: 10/29/17 21:21 Dose: 5 mg Ezetimibe (Zetia -) 10 mg PO [facility] Last Admin: 10/29/17 21:23 Dose: 10 mg Heparin Sodium (Porcine) (Heparin -) 5,000 unit SQ TID [facility] Last Admin: 10/30/17 05:48 Dose: 5,000 unit Piperacillin Sod/Tazobactam (Sod 3.375 gm/ Dextrose) 50 mls @ 100 mls/hr IVPB Q8H-IV [facility]; Protocol Last Admin: 10/30/17 10:52 Dose: 100 mls/hr Levothyroxine Sodium (Synthroid -) 112 mcg PO AM [facility] Last Admin: 10/30/17 06:44 Dose: 112 mcg Lidocaine (Lidoderm Patch -) 1 patch TP DAILY [facility] Last Admin: 10/30/17 10:10 Dose: 1 patch Metoprolol Tartrate (Lopressor -) 25 mg PO BID [facility] Last Admin: 10/30/17 10:09 Dose: 25 mg Miscellaneous (Lidoderm Patch Removal) 1 each MC DAILY@2200 [facility] Last Admin: 10/29/17 21:29 Dose: 1 each Oxycodone HCl (Roxicodone -) 2.5 mg PO Q6H PRN PRN Reason: PAIN LEVEL 6-10 Valsartan (Diovan -) 160 mg PO DAILY [facility] Last Admin: 10/30/17 10:09 Dose: 160 mg - Objective Vital Signs: Vital Signs Temperature 98 F 10/30/17 09:00 Pulse Rate 66 10/30/17 09:00 Respiratory Rate 18 10/30/17 09:00 Blood Pressure 127/66 10/30/17 09:00 O2 Sat by Pulse Oximetry (%) 96 10/29/17 21:00 Constitutional: Yes: Well Nourished, No Distress, Calm Cardiovascular: Yes: WNL, Regular Rate and Rhythm. No: Gallop, Murmur Respiratory: Yes: Regular, CTA Bilaterally, Diminished (RLL), Other (right chest wall tenderness). No: Accessory Muscle Use, Rales, Rhonchi, SOB, Tachypnea, Wheezes Gastrointestinal: Yes: WNL, Normal Bowel Sounds, Soft. No: Distention, Tenderness Genitourinary: Yes: WNL Edema: No Neurological: Yes: Alert, Confusion Psychiatric: Yes: Alert Labs: CBC, BMP 10/30/17 06:30 10/30/17 06:30 INR, PTT INR 1.04 (0.82-1.09) 10/29/17 07:10 - ....Imaging Cat Scan: Report Reviewed Problem List - Problems (1) Pneumonia Code(s): J18.9 - PNEUMONIA, UNSPECIFIED ORGANISM Qualifiers: Laterality: right Lung location: lower lobe of lung (2) Leukocytosis Code(s): D72.829 - ELEVATED WHITE BLOOD CELL COUNT, UNSPECIFIED (3) INOCENCIA (acute kidney injury) Code(s): N17.9 - ACUTE KIDNEY FAILURE, UNSPECIFIED (4) Ribs, multiple fractures Code(s): S22.49XA - MULTIPLE FRACTURES OF RIBS, UNSP SIDE, INIT FOR CLOS FX Qualifiers: Encounter type: subsequent encounter Fracture type: closed Laterality: right (5) Metatarsal bone fracture Code(s): S92.309A - FRACTURE OF UNSP METATARSAL BONE(S), UNSP FOOT, INIT Qualifiers: Encounter type: subsequent encounter Metatarsal bone: fifth Fracture type : closed Fracture alignment: nondisplaced Laterality: right (6) Dementia Code(s): F03.90 - UNSPECIFIED DEMENTIA WITHOUT BEHAVIORAL DISTURBANCE (7) HTN (hypertension) Code(s): I10 - ESSENTIAL (PRIMARY) HYPERTENSION Qualifiers: Hypertension type: essential hypertension Qualified Code(s): I10 - Essential (primary) hypertension (8) History of unsteady gait Code(s): Z87.898 - PERSONAL HISTORY OF OTHER SPECIFIED CONDITIONS (9) Hypercholesteremia Code(s): E78.00 - PURE HYPERCHOLESTEROLEMIA, UNSPECIFIED (10) Hypothyroidism Code(s): E03.9 - HYPOTHYROIDISM, UNSPECIFIED (11) Venous insufficiency of left leg Code(s): I87.2 - VENOUS INSUFFICIENCY (CHRONIC) (PERIPHERAL) (12) Hypokalemia Code(s): E87.6 - HYPOKALEMIA (13) Hypomagnesemia Code(s): E83.42 - HYPOMAGNESEMIA (14) Pleural effusion, right Code(s): J90 - PLEURAL EFFUSION, NOT ELSEWHERE CLASSIFIED Assessment/Plan (1) Pneumonia Assessment/Plan: recent hospital admission RLL, infiltrate/atelectasis w/ small-moderate pleural effusion urine legionella neg MRSA nares screen neg IS 10x/hr pulm consulted continue zosyn ID following Code(s): J18.9 - PNEUMONIA, UNSPECIFIED ORGANISM Qualifiers: Laterality: right Lung location: lower lobe of lung (2) Leukocytosis Assessment/Plan: improving Code(s): D72.829 - ELEVATED WHITE BLOOD CELL COUNT, UNSPECIFIED (3) INOCENCIA (acute kidney injury) Assessment/Plan: secondary reduced po intake encourage po intake monitor Code(s): N17.9 - ACUTE KIDNEY FAILURE, UNSPECIFIED (4) Pleural effusion, right Assessment/Plan: chest CT reviewed- small/moderate pleural effusion, right pt asymptomatic pulm consulted Code(s): J90 - PLEURAL EFFUSION, NOT ELSEWHERE CLASSIFIED (5) Ribs, multiple fractures Assessment/Plan: s/p recent fall right ribs 6,7,9 fx evaluated by ortho last admission continue PT assist with IS 10xhr splint using pillow to assist with coughing/deep breathing tylenol scheduled, roxicodone prn for pain control pain management consult pending Code(s): S22.49XA - MULTIPLE FRACTURES OF RIBS, UNSP SIDE, INIT FOR CLOS FX Qualifiers: Encounter type: subsequent encounter Fracture type: closed Laterality: right (6) Metatarsal bone fracture Assessment/Plan: pt able to weight bear and ambulate evaluated by ortho last admission continue PT Code(s): S92.309A - FRACTURE OF UNSP METATARSAL BONE(S), UNSP FOOT, INIT Qualifiers: Encounter type: subsequent encounter Metatarsal bone: fifth Fracture type : closed Fracture alignment: nondisplaced Laterality: right (7) Dementia Assessment/Plan: chronic continue home meds Code(s): F03.90 - UNSPECIFIED DEMENTIA WITHOUT BEHAVIORAL DISTURBANCE (8) HTN (hypertension) Assessment/Plan: controlled continue metoprolol, valsartan hold hct in the setting of inocencia and reduced po intake Code(s): I10 - ESSENTIAL (PRIMARY) HYPERTENSION Qualifiers: Hypertension type: essential hypertension Qualified Code(s): I10 - Essential (primary) hypertension (9) History of unsteady gait Code(s): Z87.898 - PERSONAL HISTORY OF OTHER SPECIFIED CONDITIONS (10) Hypercholesteremia Assessment/Plan: chronic continue statin Code(s): E78.00 - PURE HYPERCHOLESTEROLEMIA, UNSPECIFIED (11) Hypothyroidism Assessment/Plan: stable continue levothyroxine Code(s): E03.9 - HYPOTHYROIDISM, UNSPECIFIED (12) Venous insufficiency of left leg Assessment/Plan: stable resume hctz when cr baseline Code(s): I87.2 - VENOUS INSUFFICIENCY (CHRONIC) (PERIPHERAL) (13) Hypokalemia Assessment/Plan: improved kcl po [id number] monitor bmp Code(s): E87.6 - HYPOKALEMIA (14) Hypomagnesemia Assessment/Plan: improved Code(s): E83.42 - HYPOMAGNESEMIA Assessment/Plan Dispo: SNF
--- NOTE | 2017-10-30 12:49 | PN ---
Progress Note (short form) - Note Progress Note: PULMONARY CONSULTATION DICTATED 10/30/17 IMP S/P MECHANICAL FALL WITH MULTIPLE RIB FXS FEVER/RLL CONSOLIDATION ?PNEUMONIA/ATELECTASIS CP SECONDARY TO RIB FXS SMALL R PLEURAL EFFUSION DEMENTIA HTN HLD HYPOTHYROID PLAN IV ABX PER ID ANALGESICS INCENTIVE SPIROMETER O2 F/U CHEST X-RAYS DR EUGENE Problem List - Problems (1) Pleural effusion, right Code(s): J90 - PLEURAL EFFUSION, NOT ELSEWHERE CLASSIFIED (2) Pneumonia Code(s): J18.9 - PNEUMONIA, UNSPECIFIED ORGANISM Qualifiers: Laterality: right Lung location: lower lobe of lung (3) Ribs, multiple fractures Code(s): S22.49XA - MULTIPLE FRACTURES OF RIBS, UNSP SIDE, INIT FOR CLOS FX Qualifiers: Encounter type: subsequent encounter Fracture type: closed Laterality: right (4) Dementia Code(s): F03.90 - UNSPECIFIED DEMENTIA WITHOUT BEHAVIORAL DISTURBANCE (5) HTN (hypertension) Code(s): I10 - ESSENTIAL (PRIMARY) HYPERTENSION Qualifiers: Hypertension type: essential hypertension Qualified Code(s): I10 - Essential (primary) hypertension (6) Hypercholesteremia Code(s): E78.00 - PURE HYPERCHOLESTEROLEMIA, UNSPECIFIED (7) Hypothyroidism Code(s): E03.9 - HYPOTHYROIDISM, UNSPECIFIED (8) Venous insufficiency of left leg Code(s): I87.2 - VENOUS INSUFFICIENCY (CHRONIC) (PERIPHERAL) (9) Atelectasis of both lungs Code(s): J98.11 - ATELECTASIS
[2017-10-30] MEDS ORDERED: PIPERACILLIN/TAZOBACTAM 3.375 GM VIAL IVPB ONE ×2 (13:56→18:35)
[2017-10-30] MEDS ORDERED: DEXTROSE 5%-WATER - 50 ML IVPB ONE ×2 (13:56→18:35)
--- NOTE | 2017-10-30 13:57 | CONS ---
DATE OF CONSULTATION: 10/30/2017 PULMONARY CONSULTATION REFERRING PHYSICIAN: HISTORY OF PRESENT ILLNESS: The patient is an 86-year-old white female with a past medical history of dementia, hypothyroidism and hyperlipidemia admitted to [facility] on October 28, 2017 secondary to increasing shortness of breath, fever and chest pain. The patient had sustained a mechanical fall on October 26, 2017. She went to the emergency room and was noted to have four rib fractures, 6 through 9, and was discharged home. She returned on October 28, 2017 with complaint of fever, chills, severe right-sided chest pain and shallow breathing due to her severe pain. She also complained of a cough and a fever of 102 for one day. The patient was admitted and on admission, she underwent a chest CT that revealed evidence of acute fractures of the 6th, 7th and 8th ribs laterally. She was also noted to have a mild left posterior basal opacity which may be secondary to atelectasis and a right basal opacity. She was admitted for further therapy. On admission, she was placed on broad-spectrum antibiotics. She was evaluated by Dr. Davis from Infectious Disease. She was also evaluated by Dr. Devon Perry from Thoracic Surgery, who felt that the patient did not require any rib blocks and just recommended incentive spirometer and analgesics. The patient is a nonsmoker. There is no history of outpatient exposure to chemicals or fumes. PAST MEDICAL HISTORY: Again, this includes dementia, hypothyroidism, hyperlipidemia, recent 6 through 9 rib fractures. REVIEW OF SYSTEMS: No shortness of breath, no cough, positive chest pain, no hemoptysis, no abdominal pain. CURRENT MEDICATIONS: Lidoderm patch, Tylenol, Diovan, Zosyn, heparin, Celexa, metoprolol, Lopressor, Colace, Zetia, Lipitor, aspirin, Voltaren, oxcarbazepine, Aricept and Synthroid. PHYSICAL EXAMINATION: General: The patient is an elderly white female, awake and alert, in no acute distress. Vital Signs: She is afebrile. Blood pressure is 127/66, respiratory rate 18, O2 saturation is 96%. HEENT: Head is normocephalic, atraumatic. Neck: Supple. Heart: Regular, S1, S2. Chest: Clear. Abdomen: Soft. Bowel sounds are positive. Extremities: No cyanosis or edema. LABORATORY: WBC is 11.1, hemoglobin 11.1, hematocrit 32.7, platelet count of 149,000. INR is 1.04. Venous blood gas with pH of 7.40, PCO2 of 43. Chemistries: BUN 23, creatinine 1.0. Rib x-rays on October 25, 2017 reveal acute fractures of the 6th through 9th ribs, mildly displaced. IMPRESSION: 1. Status post mechanical fall with subsequent rib fractures. 2. Fever, chills. 3. Right lower lobe consolidation. 4. Possible pneumonia, possible atelectasis. 5. Dementia. 6. Hypertension. 7. Hyperlipidemia. 8. Pleural effusion PLAN: 1. Incentive spirometer. 2. Analgesics. 3. Antibiotic therapy as per Infectious Disease. 4. Supplemental O2 as needed. 5. Follow up chest x-rays. ANDRIA EUGENE M.D. WILLIAM/[id number] MTDD
[2017-10-30] MEDS: DONEPEZIL HCL 5 MG TABLET (FP) PO SCH (21:08)
[2017-10-30] MEDS: ATORVASTATIN CA 20 MG TABLET (FP) PO SCH (21:08)
[2017-10-30] MEDS: LIDOCAINE PATCH REMOVAL MC SCH (21:09)
[2017-10-30] MEDS: EZETIMIBE 10 MG TABLET (FP) PO SCH (21:09)
[2017-10-31] MEDS: ACETAMINOPHEN 325 MG TABLET (FP) PO SCH ×4 (00:26→18:45)
[2017-10-31] MEDS ORDERED: PIPERACILLIN/TAZOBACTAM 3.375 GM VIAL IVPB ONE ×2 (01:03→08:57)
[2017-10-31] MEDS ORDERED: DEXTROSE 5%-WATER - 50 ML IVPB ONE ×2 (01:03→08:57)
[2017-10-31] MEDS: PIPERACILLIN/TAZOB 3.375 GM 3.375 GM in DEXTROSE 5%-WATER - 50 ML IVPB SCH ×2 (01:07→09:05)
[2017-10-31] MEDS: HEPARIN NA (PORCINE) 5,000 UNITS/ML 1ML VIAL SQ SCH ×3 (06:02→21:01)
[2017-10-31] MEDS: LEVOTHYROXINE NA 112 MCG TABLET (FP) PO SCH (06:05)
[2017-10-31] MEDS: DOCUSATE SODIUM 100 MG CAPSULE (FP) PO SCH ×3 (06:05→21:01)
[2017-10-31 07:08] LABS: BASO % 0.1 % (0-2.0); EOS % 1.3 % (0-4.5); HEMATOCRIT 29.8 % (32.4-45.2); HEMOGLOBIN 10.4 GM/dL (10.7-15.3); LYMPH % 6.5 % (8-40); MCH 30.9 pg (25.7-33.7); MCHC 34.8 g/dl (32.0-36.0); MEAN CELL VOLUME 88.7 fl (80-96); MEAN PLT VOLUME 9.3 fl (7.5-11.1); MONO % 10.4 % (3.8-10.2); NEUT % 81.7 % (42.8-82.8); PLATELET COUNT 161 K/MM3 (134-434); RBC 3.36 M/mm3 (3.60-5.2); RDW 13.7 % (11.6-15.6); WHITE BLOOD COUNT 7.2 K/mm3 (4.0-10.0)
[2017-10-31 07:23] LABS: ANION GAP 8 (8-16); BLOOD UREA NITROGEN 24 mg/dL (7-18); CALCIUM 7.8 mg/dL (8.5-10.1); CHLORIDE 111 mmol/L (98-107); CO2 24 mmol/L (21-32); GLUCOSE,RANDOM 90 mg/dL (74-106); MAGNESIUM 2.2 mg/dL (1.8-2.4); SODIUM 143 mmol/L (136-145)
[2017-10-31 07:24] LABS: CREATININE 1.1 mg/dL (0.55-1.02)
[2017-10-31] MEDS ORDERED: PT OWN MED DRAWER 7, Y5N ONE ×3 (08:57→22:33)
[2017-10-31] MEDS: DICLOFENAC SODIUM 25 MG TABLET.DR PO SCH (09:18)
[2017-10-31] MEDS: ASPIRIN 81 MG CHEWABLE TABLETS PO SCH (09:18)
[2017-10-31] MEDS: CITALOPRAM HYDROBROMIDE 10 MG TABLET (FP) PO SCH (09:18)
[2017-10-31] MEDS: METOPROLOL TARTRATE 25 MG TABLET (FP) PO SCH ×2 (09:18→21:01)
[2017-10-31] MEDS: VALSARTAN 160 MG TABLET (UD) PO SCH (09:18)
[2017-10-31] MEDS: LIDOCAINE 5% TOPICAL PATCH TP SCH (09:19)
--- NOTE | 2017-10-31 10:52 | PN ---
Progress Note (short form) - Note Progress Note: doing well afebrile using incentive spirometer this am ambulating less chest pain a/p RLL pneumonia s/p recent rib fracture Vital Signs Period Temp Pulse Resp BP Sys/Hobbs Pulse Ox Last 24 Hr 97.7 F-98.3 F 54-78 18-20 115-148/60-87 94-95 cor-rrr llungs decreased bs at bases abd soft,nt ext no edema CBC, BMP 10/31/17 06:30 10/31/17 06:30 Microbiology 10/28/17 18:50 Blood - Peripheral Venous Blood Culture - Preliminary NO GROWTH OBTAINED AFTER 48 HOURS, INCUBATION TO CONTINUE FOR 3 DAYS. 10/28/17 18:45 Blood - Peripheral Venous Blood Culture - Preliminary NO GROWTH OBTAINED AFTER 48 HOURS, INCUBATION TO CONTINUE FOR 3 DAYS. 10/29/17 11:38 Nares - Mrsa Screen - Right MRSA Screen - Final NO MRSA ISOLATED 10/29/17 11:38 Nares - Mrsa Screen - Left MRSA Screen - Final NO MRSA ISOLATED 10/28/17 20:50 Urine - Urine Clean Catch Urine Culture - Final NO GROWTH OBTAINED 10/29/17 12:20 Urine For Antigen Detection Legionella Antigen - Final 10/29/17 12:20 Urine For Antigen Detection Streptococcus pneumoniae Antigen (M - Final cxray improved a/p RLL pneumonia- day #3 zosyn switch to ceftin 500 bid to finish total 7 days encourage incentive spirometry s/p right rib fracture s/p fall dementia please call back if needed Problem List - Problems (1) Pneumonia Code(s): J18.9 - PNEUMONIA, UNSPECIFIED ORGANISM Qualifiers: Laterality: right Lung location: lower lobe of lung (2) Ribs, multiple fractures Code(s): S22.49XA - MULTIPLE FRACTURES OF RIBS, UNSP SIDE, INIT FOR CLOS FX Qualifiers: Encounter type: subsequent encounter Fracture type: closed Laterality: right (3) Dementia Code(s): F03.90 - UNSPECIFIED DEMENTIA WITHOUT BEHAVIORAL DISTURBANCE
--- NOTE | 2017-10-31 11:30 | DS ---
Physical Examination Vital Signs: Vital Signs Temperature 97.7 F 10/31/17 09:14 Pulse Rate 61 10/31/17 09:14 Respiratory Rate 20 10/31/17 09:14 Blood Pressure 148/86 10/31/17 09:14 O2 Sat by Pulse Oximetry (%) 95 10/30/17 21:00 Constitutional: Yes: Well Nourished, No Distress, Calm Cardiovascular: Yes: WNL, Regular Rate and Rhythm. No: Gallop, Murmur Respiratory: Yes: WNL, Regular, CTA Bilaterally, Other (right chest wall tenderness, improved). No: Accessory Muscle Use, Rales, Rhonchi, SOB, Tachypnea , Wheezes Gastrointestinal: Yes: WNL, Normal Bowel Sounds, Soft. No: Distention, Tenderness Renal/: Yes: WNL Edema: No Neurological: Yes: Alert, Confusion Psychiatric: Yes: WNL, Alert Labs: CBC, BMP 10/31/17 06:30 10/31/17 06:30 Discharge Summary Reason For Visit: FRACTURE OF MULTIPLE RIBS PNEUMONIA Current Active Problems Atelectasis of both lungs (Acute) Hypokalemia (Acute) Hypomagnesemia (Acute) Leukocytosis (Acute) Pleural effusion (Acute) Pleural effusion, right (Acute) Pneumonia (Acute) Hospital Course: is an 86 year old female who was admitted for PNA, atelectasis. She had multiple right rib fx prev admission where she was discharged home, she was not using IS at home or taking deep breaths due to pain, she returned to hospital with fevers and pna. Chest CT reveals atelectasis, right small pleural effusion. She has been treated by ID for PNA and transition to po antibx today. The repeat chest xray today looks improved. Pt evaluated by CT surgery who has cleared by pt. Pt also evaluated by pulmonary. Pt noted to have decreased O2sat with ambulation, pt denies any symptoms, suspect due to atelectasis, discussed with pulmonary, no further work up needed. Pt can receive O2 prn at SNF. She is doing a lot better, pain better controlled, using incentive spirometer, afebrile , labs unremarkable, wbcs improved, potassium level low due to reduced po intake. Otherwise, pt is medically stable for discharge to SNF. Condition: Good - Instructions Diet, Activity, Other Instructions: resume diet, activity as tolerated pre-post O2 sat here showed desat to 84 when ambulating, O2 prn Incentive spirometer 10x/hr splint chest with pillow to assist with coughing and deep breathing hydrochlorothiazide, water pill, was on hold here, may resume when she is eating and drinking regularly BP goal <150/90 antibiotic x 3 more days repeat chest xray in 1 month f/u with as directed Referrals: David Moreno MD [Staff Physician] - 1 Week Disposition: RESIDENTIAL FACILITY - Home Medications Comprehensive Discharge Medication List: Ambulatory Orders Aspirin 81 mg PO DAILY 10/25/17 Citalopram Hydrobromide [Citalopram HBr] 20 mg PO DAILY 10/25/17 Ezetimibe/Simvastatin [Vytorin 10-40 mg Tablet] 1 each PO HS 10/25/17 Levothyroxine [Synthroid -] 112 mcg PO DAILY 10/25/17 Metoprolol Tartrate 25 mg PO BID 10/25/17 Olmesartan Medoxomil [Benicar -] 12.5 mg PO DAILY 10/25/17 Acetaminophen [Tylenol .Regular Strength -] 650 mg PO Q6H PRN tablet 10/26/17 Aricept 5 mg PO HS 10/29/17 Benzonatate 100 mg PO TID 10/29/17 Famotidine [Pepcid] 40 mg PO HS 10/29/17 Acetaminophen [Tylenol .Regular Strength -] 650 mg PO Q6HPO tablet 10/31/17 Cefuroxime Axetil [Ceftin -] 500 mg PO BID 3 Days tablet 10/31/17 Diclofenac Sodium [Voltaren -] 50 mg PO DAILY tablet. 10/31/17 Docusate Sodium [Colace -] 100 mg PO TID capsule 10/31/17 Lidocaine Patch Removal [Lidoderm Patch Removal] 1 each MC DAILY@2200 each
[2017-10-31] MEDS ORDERED: POTASSIUM CHLORIDE TABS 20 MEQ TABLET.ER (FP) PO ONE (11:45)
[2017-10-31] MEDS: KCL 10 MEQ IVPB 10 MEQ/100 ML INFUS.BAG IVPB SCH ×3 (13:04→16:54)
[2017-10-31] MEDS: DONEPEZIL HCL 5 MG TABLET (FP) PO SCH (21:01)
[2017-10-31] MEDS: LIDOCAINE PATCH REMOVAL MC SCH (21:02)
[2017-10-31] MEDS: CEFUROXIME AXETIL 500 MG TABLET PO SCH (21:02)
[2017-10-31] MEDS: EZETIMIBE 10 MG TABLET (FP) PO SCH (21:03)
[2017-10-31] MEDS: ATORVASTATIN CA 20 MG TABLET (FP) PO SCH (21:12)
[2017-11-01] MEDS: ACETAMINOPHEN 325 MG TABLET (FP) PO SCH ×3 (05:24→12:15)
[2017-11-01] MEDS: DOCUSATE SODIUM 100 MG CAPSULE (FP) PO SCH (05:24)
[2017-11-01] MEDS: HEPARIN NA (PORCINE) 5,000 UNITS/ML 1ML VIAL SQ SCH (05:25)
[2017-11-01] MEDS: LEVOTHYROXINE NA 112 MCG TABLET (FP) PO SCH (06:04)
[2017-11-01 08:27] LABS: ANION GAP 9 (8-16); BLOOD UREA NITROGEN 18 mg/dL (7-18); CALCIUM 8.5 mg/dL (8.5-10.1); CHLORIDE 111 mmol/L (98-107); CO2 24 mmol/L (21-32); CREATININE 0.8 mg/dL (0.55-1.02); GLUCOSE,RANDOM 85 mg/dL (74-106); POTASSIUM 3.7 mmol/L (3.5-5.1); SODIUM 144 mmol/L (136-145)
[2017-11-01 09:05] VITALS: BP 129/73; PULSE 65; TEMP 97.6
[2017-11-01] MEDS: ASPIRIN 81 MG CHEWABLE TABLETS PO SCH (09:41)
[2017-11-01] MEDS: METOPROLOL TARTRATE 25 MG TABLET (FP) PO SCH (09:41)
[2017-11-01] MEDS: LIDOCAINE 5% TOPICAL PATCH TP SCH (09:41)
[2017-11-01] MEDS: VALSARTAN 160 MG TABLET (UD) PO SCH (09:41)
[2017-11-01] MEDS: CEFUROXIME AXETIL 500 MG TABLET PO SCH (09:42)
[2017-11-01] MEDS: CITALOPRAM HYDROBROMIDE 10 MG TABLET (FP) PO SCH (09:43)
[2017-11-01] MEDS: DICLOFENAC SODIUM 25 MG TABLET.DR PO SCH (09:43)
[2017-11-01] MEDS ORDERED: POTASSIUM CHLORIDE TABS 20 MEQ TABLET.ER (FP) PO ONE (10:15)
== END 2017-11-01 14:11 | DRG 682 ==
LOC: JER 17:28 → JERBED 20:29 → J6S 10-29 00:26
PROVIDERS: ADMIT Internal Medicine; ATTEND Internal Medicine
DX: N17.9 Acute kidney failure, unspecified (principal); J18.9 Pneumonia, unspecified organism; E86.0 Dehydration; D72.829 Elevated white blood cell count, unspecified; E87.6 Hypokalemia; E83.42 Hypomagnesemia; I10 Essential (primary) hypertension; E03.9 Hypothyroidism, unspecified; E78.5 Hyperlipidemia, unspecified; F03.90 Unspecified dementia, unspecified severity, without behavioral disturbance, psychotic disturbance, mood disturbance, and anxiety; F41.9 Anxiety disorder, unspecified; S92.351D Displaced fracture of fifth metatarsal bone, right foot, subsequent encounter for fracture with routine healing; S22.41XD Multiple fractures of ribs, right side, subsequent encounter for fracture with routine healing; W01.0XXD Fall on same level from slipping, tripping and stumbling without subsequent striking against object, subsequent encounter; Z91.19 Patient's noncompliance with other medical treatment and regimen; K59.00 Constipation, unspecified; I87.2 Venous insufficiency (chronic) (peripheral); R26.81 Unsteadiness on feet
CPT/HCPCS: 36415; 70450-TC; 71045-TC-FY; 71101-TC-RT-FY; 71250-TC; 73130-TC-RT-FY; 73610-TC-RT-FY; 73630-TC-RT-FY; 80048; 80053; 81003; 82550; 82553; 82803; 83605; 83735; 84100; 84484; 85025; 85610; 85730; 87040; 87081; 87086; 87899; 93005; 93010; 93306-TC; 94010; 94761; 97116-GP; 97161-GP; 97162-GP; 99283-25; 99285-25; G0378; G0480; J0131; J1644; J7030

== ENCOUNTER 2020-07-29 13:01 | Emergency (ER) | payer OTHER, MEDICARE ==
[2020-07-29 13:12] VITALS: BMI 27.4
[2020-07-29 14:59] VITALS: BP 122/87; PULSE 86; TEMP 98.9
== END 2020-07-29 14:59 | disposition home or self-care (01) ==
LOC: JER 13:01
DX: K59.00 Constipation, unspecified (principal)
CPT/HCPCS: 99283-25